=== PATIENT | male | born 1995 | race Asian ===

== ENCOUNTER 2016-05-02 23:21 | Emergency (ER) | payer MEDICAID, OTHER ==
[2016-05-02] MEDS ORDERED: DEXAMETHASONE SOD PHOSPHATE 10 MG/ML VIAL IM ONE (23:44)
[2016-05-02] MEDS ORDERED: DEXAMETHASONE SOD PHOSPHATE 10 MG/ML VIAL ONE (23:53)
--- NOTE | 2016-05-03 00:19 | ERNOTE ---
ENT HPI Date of Service: 05/02/16 Source: patient - Exam Limitations: no limitations - Immun/Allergies/Home Medications Immunizations: IMMUNIZATION HX Immunizations Up to Date No History of Influenza Vaccine No Hx Pneumococcal Vaccination No Allergies/Adverse Reactions: Allergies Allergy/AdvReac Type Severity Reaction Status Date / Time No Known Allergies Allergy Unverified 05/02/16 23:30 Home Medications: HOME MEDICATIONS Benzonatate [Tessalon Perle] 100 mg PO TID PRN #30 capsule 05/03/16 [Last Taken Unknown] - History of Present Illness Narrative: Non productive cough for one week with nasal congestion and sore throat. Lying supine increases the coughing. His mother has similar symptoms last week and also smokes. He denies any fevers, chill, shortness of breath. Has been taking Dayqil but has not releved the symptoms. Denies any previous respiratory problems. Severity: Present: severe ENT Location: Present: nose, throat Prearrival Treatment: Present: over the counter meds Modifying Factors - Improves: Reports: other - none Modifying Factors - Worsens: Reports: other - none Associated Symptoms - ENT: Reports: nasal congestion/drainage Review of Systems - Review of Systems Constitutional: Present: no symptoms reported EYE: Present: no symptoms reported ENT: Present: nose congestion Respiratory: Present: no symptoms reported Cardiology: Present: no symptoms reported Gastrointestinal/Abdominal: Present: no symptoms reported Genitourinary: Present: no symptoms reported Musculoskeletal: Present: no symptoms reported Skin: Present: no symptoms reported Neurological: Present: no symptoms reported Endocrine: Present: no symptoms reported Hematologic/Lymphatic: Present: no symptoms reported - Patient's Past Medical History Patient History - Medical: No pertinent hx Patient History - Cardiac/Respiratory: No pertinent hx Patient History - Cancer: No Hx of Cancer Patient History - Surgical Procedures: No surgical history Patient History - Other: None - Social History Living Situations: home Smoking Status: Never smoker Have you smoked in the past 12 months: No Do you dip or chew tobacco: No Patient requests Smoking Cessation Consult: No Initiate information on Smoking Cessation: No Alcohol Use: none Drug Use: none - Immunizations Immunizations Up to Date: No Hx Pneumococcal Vaccination: No History of Influenza Vaccine: No Physical Exam - Physical Exam General Appearance: Present: no apparent distress Eye Exam: Normal inspection: bilateral Ears, Nose, Throat: Present: nasal congestion Neck: Present: normal inspection, supple, full range of motion Respiratory: Present: no respiratory distress, normal breath sounds Cardiovascular/Chest: Present: regular rate, rhythm Gastrointestinal/Abdominal: Present: nondistended Back Exam: Present: normal inspection Extremity Exam: Present: normal inspection Neurological Exam: Present: alert, oriented, 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 - Vital Signs Patient's Vital Signs:: I have reviewed the patient's vital signs. Vital Signs: Vital Signs 05/02/16 23:21 Temperature 36.5 C Pulse Rate 97 Respiratory 18 Rate Blood Pressure 162/96 O2 Sat by Pulse 98 Oximetry - Progress/Reassessment Chief Complaint: Sore Throat Progress:: Improved Departure Clinical Impression: URI (upper respiratory infection) - Departure Disposition: Home self-care Condition: Good Instructions: Upper Respiratory Infection, Adult, [id number] Print Language: Hebrew Additional Instructions: Drink 2-3 liters of water per day while you are ill. If you get short of breath return to the ED. Obtain a decongestant and perform sinus rinsing. Prescriptions: Benzonatate [Tessalon Perle] 100 mg PO TID PRN #30 capsule PRN Reason: Cough
[2016-05-03 01:10] VITALS: BP 152/105
== END 2016-05-03 01:08 | disposition home or self-care (01) ==
LOC: ER 23:21
DX: J06.9 Acute upper respiratory infection, unspecified (principal)